=== PATIENT | male | born 2000 | race American Indian/Alaskan Native ===

== ENCOUNTER 2019-04-24 17:28 | Emergency (ER) | payer SELFPAY ==
--- NOTE | 2019-04-24 17:54 | XRay Report ---
RIGHT SHOULDER 2 VIEWS INDICATION / CLINICAL INFORMATION: injury, pain, deformity COMPARISON: None available. FINDINGS: BONES / JOINT(S): There is dislocation of the shoulder joint. Humeral head is positioned anterior to the glenoid. No fracture is identified. SOFT TISSUES: No significant abnormality. ADDITIONAL FINDINGS: None. Signer Name: Moi Sewell MD Signed: 04/24/2019 5:50 PM Workstation Name: [id number]
[2019-04-24] MEDS ORDERED: LORazepam 2 MG/ML VIAL IV ONE (18:08)
[2019-04-24] MEDS ORDERED: BUPIVACAINE/PF (0.5%) 5 MG/1 ML 30 ML VIAL INFILTRATI ONE (18:08)
[2019-04-24] MEDS ORDERED: ONDANSETRON 4 MG/2 ML INJ IV ONE ×2 (18:51→19:04)
[2019-04-24] MEDS ORDERED: MORPHINE 4 MG/1 ML INJ IV ONE (18:51)
[2019-04-24] MEDS ORDERED: MORPHINE 4 MG/1 ML INJ ONE (18:53)
[2019-04-24] MEDS ORDERED: ONDANSETRON 4 MG/2 ML INJ ONE (18:54)
[2019-04-24] MEDS ORDERED: SODIUM CHLORIDE 0.9% 1000 ML 1,000 ML IV ONE ×2 (18:54→19:04)
[2019-04-24] MEDS ORDERED: SODIUM CHLORIDE 0.9% 1000 ML 1,000 ML ONE (18:56)
[2019-04-24] MEDS ORDERED: PROPOFOL 200 MG/20 ML VIAL IV ONE (19:04)
--- NOTE | 2019-04-24 19:20 | Emergency Department Report ---
ED General Adult HPI - General Chief complaint: Shoulder Injury Stated complaint: R SHOULDER PAIN Time Seen by Provider: 04/24/19 17:35 Source: patient, EMS Mode of arrival: Stretcher Limitations: No Limitations - History of Present Illness Initial comments: The patient presents to the emergency department with a chief complaint of right shoulder pain. Patient states he was playing basketball when he injured his right shoulder. Patient states she was trying to block out his opponent when he yanked on his arm and he felt a pop. Patient describes the pain as sharp and intense in nature and made worse by movement. Patient denies any other injuries. -: Sudden Location: upper extremity Severity scale (0 -10): 9 Quality: sharp Improves with: rest Worsens with: movement Associated Symptoms: denies other symptoms Treatments Prior to Arrival: none - Related Data Previous Rx's Medication Instructions Recorded Last Taken Type Naproxen [Naprosyn] 500 mg PO BID PRN #20 tablet 04/24/19 Unknown Rx Allergies Allergy/AdvReac Type Severity Reaction Status Date / Time No Known Allergies Allergy Unverified 04/24/19 17:33 ED Review of Systems ROS: Stated complaint: R SHOULDER PAIN Other details as noted in HPI Comment: All other systems reviewed and negative Constitutional: denies: chills, fever Eyes: denies: eye pain, eye discharge, vision change ENT: denies: ear pain, throat pain Respiratory: denies: cough, shortness of breath, wheezing Cardiovascular: denies: chest pain, palpitations Endocrine: no symptoms reported Gastrointestinal: denies: abdominal pain, nausea, diarrhea Genitourinary: denies: urgency, dysuria Musculoskeletal: other (right arm pain). denies: back pain, joint swelling, arthralgia Skin: denies: rash, lesions Neurological: denies: headache, weakness, paresthesias Psychiatric: denies: anxiety, depression Hematological/Lymphatic: denies: easy bleeding, easy bruising ED Past Medical Hx - Past Medical History Previous Medical History?: No - Surgical History Past Surgical History?: No - Social History Smoking Status: Never Smoker Substance Use Type: None - Medications Home Medications: Home Medications Medication Instructions Recorded Confirmed Last Taken Type Naproxen [Naprosyn] 500 mg PO BID PRN #20 tablet 04/24/19 Unknown Rx ED Physical Exam - General Limitations: No Limitations General appearance: alert, in no apparent distress - Head Head exam: Present: atraumatic, normocephalic - Eye Eye exam: Present: normal appearance, PERRL, EOMI - ENT ENT exam: Present: mucous membranes moist - Neck Neck exam: Present: normal inspection - Respiratory Respiratory exam: Present: normal lung sounds bilaterally. Absent: respiratory distress - Cardiovascular Cardiovascular Exam: Present: regular rate, normal rhythm. Absent: systolic murmur, diastolic murmur, rubs, gallop - GI/Abdominal GI/Abdominal exam: Present: soft, normal bowel sounds - Rectal Rectal exam: Present: deferred - Extremities Exam Extremities exam: Present: other (DrCatrachita range of motion of the right shoulder secondary to pain. There is a deformity of the right shoulder) - Back Exam Back exam: Present: normal inspection - Neurological Exam Neurological exam: Present: alert, oriented X3 - Psychiatric Psychiatric exam: Present: normal affect, normal mood - Skin Skin exam: Present: warm, dry, intact, normal color. Absent: rash ED Course Vital Signs 04/24/19 04/24/19 04/24/19 17:30 17:39 17:46 Temperature 98.2 F Temperature [ Pre-Procedure] Pulse Rate 55 L 62 46 L Pulse Rate [ Intra-Procedure ] Pulse Rate [ Post-Procedure] Pulse Rate [Pre -Procedure] Respiratory 16 17 13 Rate Respiratory Rate [Intra- Procedure] Respiratory Rate [Post- Procedure] Respiratory Rate [Pre- Procedure] Blood Pressure 102/69 102/69 102/69 Blood Pressure [Intra- Procedure] Blood Pressure [Post-Procedure ] Blood Pressure [Pre-Procedure] O2 Sat by Pulse 97 98 97 Oximetry O2 Sat by Pulse Oximetry [ Intra-Procedure ] O2 Sat by Pulse Oximetry [Post -Procedure] 04/24/19 04/24/19 04/24/19 18:00 18:15 18:30 Temperature Temperature [ Pre-Procedure] Pulse Rate 65 65 65 Pulse Rate [ Intra-Procedure ] Pulse Rate [ Post-Procedure] Pulse Rate [Pre -Procedure] Respiratory 18 16 18 Rate Respiratory Rate [Intra- Procedure] Respiratory Rate [Post- Procedure] Respiratory Rate [Pre- Procedure] Blood Pressure 99/77 114/77 114/77 Blood Pressure [Intra- Procedure] Blood Pressure [Post-Procedure ] Blood Pressure [Pre-Procedure] O2 Sat by Pulse 99 100 100 Oximetry O2 Sat by Pulse Oximetry [ Intra-Procedure ] O2 Sat by Pulse Oximetry [Post -Procedure] 04/24/19 04/24/19 04/24/19 18:45 19:00 19:15 Temperature Temperature [ Pre-Procedure] Pulse Rate 66 68 63 Pulse Rate [ Intra-Procedure ] Pulse Rate [ Post-Procedure] Pulse Rate [Pre -Procedure] Respiratory 19 19 15 Rate Respiratory Rate [Intra- Procedure] Respiratory Rate [Post- Procedure] Respiratory Rate [Pre- Procedure] Blood Pressure 119/77 119/77 117/79 Blood Pressure [Intra- Procedure] Blood Pressure [Post-Procedure ] Blood Pressure [Pre-Procedure] O2 Sat by Pulse 99 94 99 Oximetry O2 Sat by Pulse Oximetry [ Intra-Procedure ] O2 Sat by Pulse Oximetry [Post -Procedure] 04/24/19 04/24/19 04/24/19 19:30 19:33 19:46 Temperature Temperature [ Pre-Procedure] Pulse Rate 75 65 Pulse Rate [ Intra-Procedure ] Pulse Rate [ Post-Procedure] Pulse Rate [Pre -Procedure] Respiratory 16 18 17 Rate Respiratory Rate [Intra- Procedure] Respiratory Rate [Post- Procedure] Respiratory Rate [Pre- Procedure] Blood Pressure 117/79 111/68 Blood Pressure [Intra- Procedure] Blood Pressure [Post-Procedure ] Blood Pressure [Pre-Procedure] O2 Sat by Pulse 99 98 100 Oximetry O2 Sat by Pulse Oximetry [ Intra-Procedure ] O2 Sat by Pulse Oximetry [Post -Procedure] 04/24/19 04/24/19 04/24/19 20:00 20:16 20:30 Temperature Temperature [ Pre-Procedure] Pulse Rate 67 63 67 Pulse Rate [ Intra-Procedure ] Pulse Rate [ Post-Procedure] Pulse Rate [Pre -Procedure] Respiratory 16 10 L 19 Rate Respiratory Rate [Intra- Procedure] Respiratory Rate [Post- Procedure] Respiratory Rate [Pre- Procedure] Blood Pressure 128/68 103/59 116/57 Blood Pressure [Intra- Procedure] Blood Pressure [Post-Procedure ] Blood Pressure [Pre-Procedure] O2 Sat by Pulse 98 99 97 Oximetry O2 Sat by Pulse Oximetry [ Intra-Procedure ] O2 Sat by Pulse Oximetry [Post -Procedure] 04/24/19 04/24/19 04/24/19 20:45 20:50 20:54 Temperature Temperature [ 98.4 F Pre-Procedure] Pulse Rate 76 90 Pulse Rate [ 80 Intra-Procedure ] Pulse Rate [ Post-Procedure] Pulse Rate [Pre 77 -Procedure] Respiratory 8 L 20 Rate Respiratory 14 Rate [Intra- Procedure] Respiratory Rate [Post- Procedure] Respiratory 18 Rate [Pre- Procedure] Blood Pressure 114/66 Blood Pressure 114/70 [Intra- Procedure] Blood Pressure [Post-Procedure ] Blood Pressure 114/66 [Pre-Procedure] O2 Sat by Pulse 94 Oximetry O2 Sat by Pulse 97 Oximetry [ Intra-Procedure ] O2 Sat by Pulse Oximetry [Post -Procedure] 04/24/19 04/24/19 04/24/19 21:00 21:16 21:30 Temperature Temperature [ Pre-Procedure] Pulse Rate 82 82 85 Pulse Rate [ Intra-Procedure ] Pulse Rate [ 86 Post-Procedure] Pulse Rate [Pre -Procedure] Respiratory 19 10 L 14 Rate Respiratory Rate [Intra- Procedure] Respiratory 16 Rate [Post- Procedure] Respiratory Rate [Pre- Procedure] Blood Pressure 114/66 115/67 110/67 Blood Pressure [Intra- Procedure] Blood Pressure 105/55 [Post-Procedure ] Blood Pressure [Pre-Procedure] O2 Sat by Pulse 97 99 99 Oximetry O2 Sat by Pulse Oximetry [ Intra-Procedure ] O2 Sat by Pulse 98 Oximetry [Post -Procedure] 04/24/19 04/24/19 04/24/19 21:45 22:00 22:15 Temperature Temperature [ Pre-Procedure] Pulse Rate 79 78 92 H Pulse Rate [ Intra-Procedure ] Pulse Rate [ Post-Procedure] Pulse Rate [Pre -Procedure] Respiratory 18 17 17 Rate Respiratory Rate [Intra- Procedure] Respiratory Rate [Post- Procedure] Respiratory Rate [Pre- Procedure] Blood Pressure 117/70 119/75 116/68 Blood Pressure [Intra- Procedure] Blood Pressure [Post-Procedure ] Blood Pressure [Pre-Procedure] O2 Sat by Pulse 99 100 98 Oximetry O2 Sat by Pulse Oximetry [ Intra-Procedure ] O2 Sat by Pulse Oximetry [Post -Procedure] - Orthopedic Joint Reduction Joint #1 Consent Obtained: written consent Time Out Performed: Yes Side: right Joint Reduction Location: shoulder Analgesia: other Local Anesthetic Used: Bupivicaine 0.25% Amount of Anesthetic Used (mls): 20 Shoulder Technique Used (if applicable): traction/counter-traction Post-Reduction Neuro Exam: intact Post-Reduction Vascular Exam: intact Post Reduction X-Ray Obtained: Yes Post Reduction X-Ray Results: not reduced Patient Tolerated Procedure: no complications Joint #2 Consent Obtained: written consent Time Out Performed: Yes Side: right Joint Reduction Location: shoulder Analgesia: moderate sedation Shoulder Technique Used (if applicable): traction/counter-traction Post-Reduction Neuro Exam: intact Post-Reduction Vascular Exam: intact Post Reduction X-Ray Obtained: Yes Post Reduction X-Ray Results: reduced Splint Applied: Yes (shoulder immobilizer) Patient Tolerated Procedure: no complications ED Medical Decision Making - Radiology Data Radiology results: report reviewed Critical care attestation.: If time is entered above; I have spent that time in minutes in the direct care of this critically ill patient, excluding procedure time. ED Disposition Clinical Impression: Shoulder dislocation Disposition: DC-01 TO HOME OR SELFCARE Is pt being admited?: No Does the pt Need Aspirin: No Condition: Stable Instructions: Shoulder Dislocation (ED), Moderate Sedation (ED) Additional Instructions: return if worse Referrals: PRIMARY CAREMD [Primary Care Provider] - 3-5 Days CINDY CARD MD [Staff Physician] - 3-5 Days Forms: Accompanied Note Time of Disposition: 23:04
--- NOTE | 2019-04-24 19:22 | XRay Report ---
RIGHT SHOULDER 1 VIEW INDICATION / CLINICAL INFORMATION: post attempt of reduction. COMPARISON: Earlier exam same day FINDINGS: Right humeral head is again dislocated inferiorly (and presumably anteriorly) with respect to the gle noid fossa. No obvious fracture. Signer Name: Joreg Navas MD Signed: 04/24/2019 7:17 PM Workstation Name: [id number]
--- NOTE | 2019-04-24 22:56 | XRay Report ---
RIGHT SHOULDER 2 VIEWS INDICATION / CLINICAL INFORMATION: post reduction COMPARISON: Right shoulder radiograph earlier same day FINDINGS: BONES / JOINT(S): There has been successful reduction of the right glenohumeral joint, which is now i n anatomic alignment. No acute displaced fracture identified. SOFT TISSUES: Mild soft tissue swelling of the shoulder. ADDITIONAL FINDINGS: None. Signer Name: Yvette Parrish MD Signed: 04/24/2019 10:52 PM Workstation Name: [id number]
[2019-04-25 00:02] VITALS: BP 118/77
== END 2019-04-24 23:30 | disposition home or self-care (01) ==
LOC: ED 17:28
DX: S43.004A Unspecified dislocation of right shoulder joint, initial encounter (principal); Z79.899 Other long term (current) drug therapy; X58.XXXA Exposure to other specified factors, initial encounter; Y93.67 Activity, basketball; Y92.89 Other specified places as the place of occurrence of the external cause; Y99.8 Other external cause status
CPT/HCPCS: 23650; 73020; 73030; 96374; 96375; 96376; 99284; J2060; J2270; J2405; J2704; J7030

== ENCOUNTER 2019-05-12 11:25 | Emergency (ER) | payer SELFPAY ==
[2019-05-12 11:30] VITALS: BP 114/61
--- NOTE | 2019-05-12 11:41 | Event Note ---
ED Screening Note ED Screening Note: pt states he has had a sore throat for two days pain with swallowing never had before no vomiting tolerating his secretions denies any other symptoms no sick contacts PMHx none no allergies to meds
--- NOTE | 2019-05-12 11:47 | Emergency Department Report ---
ED ENT HPI - General Chief complaint: Sore Throat Stated complaint: SORE THROAT Time Seen by Provider: 05/12/19 11:36 Source: patient Mode of arrival: Ambulatory Limitations: No Limitations - History of Present Illness Initial comments: pt is a 19 yo male who states he has had a sore throat for two days. he has associated pain with swallowing. he has never had before. he denies any vomiting. he is tolerating his secretions. he denies any other symptoms. no sick contacts. PMHx none. no allergies to meds - Related Data Previous Rx's Medication Instructions Recorded Last Taken Type Naproxen [Naprosyn] 500 mg PO BID PRN #20 tablet 04/24/19 Unknown Rx Penicillin Vk [Veetids TAB] 500 mg PO BID 10 Days #40 tablet 05/12/19 Unknown Rx Allergies Allergy/AdvReac Type Severity Reaction Status Date / Time No Known Allergies Allergy Unverified 04/24/19 17:33 ED Dental HPI - General Chief complaint: Sore Throat Stated complaint: SORE THROAT Time Seen by Provider: 05/12/19 11:36 Source: patient Mode of arrival: Ambulatory Limitations: No Limitations - Related Data Previous Rx's Medication Instructions Recorded Last Taken Type Naproxen [Naprosyn] 500 mg PO BID PRN #20 tablet 04/24/19 Unknown Rx Penicillin Vk [Veetids TAB] 500 mg PO BID 10 Days #40 tablet 05/12/19 Unknown Rx Allergies Allergy/AdvReac Type Severity Reaction Status Date / Time No Known Allergies Allergy Unverified 04/24/19 17:33 ED Review of Systems ROS: Stated complaint: SORE THROAT Other details as noted in HPI Comment: All other systems reviewed and negative ED Past Medical Hx - Past Medical History Previous Medical History?: No - Surgical History Past Surgical History?: No - Social History Smoking Status: Never Smoker Substance Use Type: None - Medications Home Medications: Home Medications Medication Instructions Recorded Confirmed Last Taken Type Naproxen [Naprosyn] 500 mg PO BID PRN #20 tablet 04/24/19 Unknown Rx Penicillin Vk [Veetids TAB] 500 mg PO BID 10 Days #40 tablet 05/12/19 Unknown Rx ED Physical Exam - General Limitations: No Limitations General appearance: alert, in no apparent distress - Head Head exam: Present: atraumatic, normocephalic - Eye Eye exam: Present: normal appearance - ENT ENT exam: Present: mucous membranes moist, TM's normal bilaterally, normal external ear exam, other (posterior oropharynx erythema with small erythematous papules, no tonsillar hypertrophy or exudates, uvula is midline, no uvular edema, no deviation of the uvula) - Neck Neck exam: Present: lymphadenopathy (very small freely movable LAD to the right anterior cervical region) - Respiratory Respiratory exam: Present: normal lung sounds bilaterally. Absent: respiratory distress, wheezes, rales, rhonchi, stridor, chest wall tenderness, accessory muscle use, decreased breath sounds, prolonged expiratory - Cardiovascular Cardiovascular Exam: Present: regular rate, normal rhythm, normal heart sounds. Absent: systolic murmur, diastolic murmur, rubs, gallop - Neurological Exam Neurological exam: Present: alert, oriented X3 - Psychiatric Psychiatric exam: Present: normal affect, normal mood - Skin Skin exam: Present: warm, dry, intact ED Course Vital Signs 05/12/19 11:28 Temperature 99.5 F Pulse Rate 94 H Respiratory 16 Rate Blood Pressure 114/61 O2 Sat by Pulse 94 Oximetry ED Medical Decision Making - Medical Decision Making pt is a 19 yo male who states he has had a sore throat for two days. he has associated pain with swallowing. he has never had before. he denies any vomiting. he is tolerating his secretions. he denies any other symptoms. no sick contacts. PMHx none. no allergies to meds. vitals are normal. on exam: posterior oropharynx erythema with small erythematous papules, no tonsillar hypertrophy or exudates, uvula is midline, no uvular edema, no deviation of the uvula, very small freely movable LAD to the right anterior cervical region. Examination consistent with strep throat. Patient given prescription for penicillin VK. Advised patient to throw away his toothbrush and to not drink after others or allow anyone to drink after him. advised pt please take medication as prescribed to completion. increase your fluid intake over the next several days. may take tylenol or ibuprofen for discomfort or if begin running a fever. may use warm salt water gargles three times a day and over the counter throat spray. follow up with a primary care doctor in the next 2-3 days for reexamination. return to the emergency room for any new or worsening symptoms. - Differential Diagnosis pharyngitis, tonsillitis, mono, peritonsillar abscess, sialoadenititis Critical care attestation.: If time is entered above; I have spent that time in minutes in the direct care of this critically ill patient, excluding procedure time. ED Disposition Clinical Impression: Strep pharyngitis Disposition: DC-01 TO HOME OR SELFCARE Is pt being admited?: No Does the pt Need Aspirin: No Condition: Stable Instructions: Strep Throat (ED) Additional Instructions: please take medication as prescribed to completion. increase your fluid intake over the next several days. may take tylenol or ibuprofen for discomfort or if begin running a fever. may use warm salt water gargles three times a day and over the counter throat spray. follow up with a primary care doctor in the next 2-3 days for reexamination. return to the emergency room for any new or worsening symptoms. Prescriptions: Penicillin Vk [Veetids TAB] 500 mg PO BID 10 Days #40 tablet Referrals: JOCELYN LOU MD [Staff Physician] - 2-3 Days [facility] [Outside] - 2-3 Days [facility] [Outside] - 2-3 Days Time of Disposition: 11:43 Print Language: [id number]
== END 2019-05-12 12:00 | disposition home or self-care (01) ==
LOC: ED 11:25
DX: J02.0 Streptococcal pharyngitis (principal)
CPT/HCPCS: 99281